=== PATIENT | male | born 1960 | race Caucasian/White ===

== ENCOUNTER 2021-08-30 06:13 | Emergency (ER) | payer OTHER ==
--- OUTSIDE RECORDS SUMMARY | 2021-08-30 06:16 | XMS REPORT | Continuity of Care Document ---
:1960 Author Organization [facility] t Address [address] [place] [address] Care Team Providers Name Role Phone JOHNSON ANTONIO Attending Clinician Unavailable MARISELA Attending Clinician Unavailable MD JERICHO ROBIN Attending Clinician Unavailable LOBITO Attending Clinician Unavailable JOHNSON ANTONIO Admitting Clinician Unavailable MD JERICHO ROBIN Admitting Clinician Unavailable Problems This patient has no known problems. Allergies, Adverse Reactions, Alerts This patient has no known allergies or adverse reactions. Medications This patient has no known medications. Procedures This patient has no known procedures. Encounters Start End Encounter Admission Attending Care Care Encounter Source Date/Time Date/Time Type Type Clinicians Facility Department ID 2021-02-20 2021-02-20 [facility] [id number] [place] 00:00:00 00:00:00 CINDY [address] 2020-09-30 2020-09-30 Outpatient [facility] [id number] [place] 00:00:00 00:00:00 HELADIO [address] Results Test Description Test Time Test Comments Results Result Comments Source SARS-CoV-2 (COVID-19) RNA [Presence] in Respiratory sp ecimen by 2021-02-20 14:38:33 KIMBERLEY with probe detection Test Item Value Reference Range Interpretation Comme nts SARS-CoV-2 (COVID-19) RNA [Presence] in Respiratory Not detected No t-Detected specimen by KIMBERLEY with probe detection (test code = 01724-8) Whether patient is employed in a healthcare setting (test code = 50714-0) Whether the patient has symptoms related to condition of interest (test code = 68008-9) Patient was hospitalized because of this condition (test code = 49969-3) Whether the patient was admitted to intensive care unit (ICU) for condition of interest (test code = 03722-9) Whether patient resides in a congregate care setting (test code = 50213-9) SARS-CoV-2 (COVID-19) RNA [Presence] in Respiratory specimen by KIMBERLEY with probe [id number] 13:54:40 Test Item Value Reference Range Interpretation Comments SARS-CoV-2 (COVID-19) RNA Not detected Not-Detected [Presence] in Respiratory specimen by KIMBERLEY with probe detection (test code = 71052-7)
[2021-08-30] MEDS ORDERED: MORPHINE 4 MG/ML SYR ONE (06:28)
[2021-08-30] MEDS ORDERED: ONDANSETRON 4 MG/2 ML VIAL ONE (06:28)
[2021-08-30] MEDS ORDERED: NA CHLORIDE 0.9% 1,000 ML ONE (06:29)
[2021-08-30 06:30] LABS: Urine Blood 2+ (Negative); Urine Glucose Negative (Negative); Urine Protein Negative (Negative); Urine Specific Gravity >=1.030 (1.005-1.030)
[2021-08-30 06:48] LABS: Absolute Lymphocytes (CBC) 2.9 K/uL (0.7-4.9); Hematocrit 48.8 % (39.6-49.0); Lymphocytes % 33.9 % (15.3-44.8); MPV 8.3 fL (7.6-11.3); RBC Red Blood Cell Count 5.39 M/uL (4.33-5.43)
[2021-08-30 07:02] LABS: Potassium 4.5 mmol/L (3.5-5.1)
--- NOTE | 2021-08-30 07:07 | RAD REPORT ---
EXAM DESCRIPTION: [facility] 6:53 am CLINICAL HISTORY: FLANK PAIN COMPARISON: No comparisons TECHNIQUE: CT of the abdomen and pelvis was performed. All CT scans are performed using dose optimization technique as appropriate and may include automated exposure control or mA/KV adjustment according to patient size. FINDINGS: Lower chest: No acute abnormality. Calcified nodule right middle lobe. Liver: Hepatic steatosis. Biliary: No biliary ductal dilatation. Stomach: No significant focal abnormality. Duodenum: No significant focal abnormality. Pancreas: No significant abnormality. Spleen: No significant abnormality. Adrenal: No suspicious lesions. Kidney/ureter: Mild left-sided hydroureteronephrosis secondary to a 3 mm stone at the left UVJ. Right renal lesion which is most likely a cyst. No renal calculi. Retroperitoneum: No retroperitoneal adenopathy. Vascular: No aneurysm. Bowel: No significant focal abnormality. Diverticulosis without diverticulitis. Normal appendix . Peritoneum: No ascites or free air. Fat containing inguinal hernias. Bladder: Grossly unremarkable. Reproductive: No adnexal masses. Bones: No acute fracture. Other: n/a IMPRESSION: Mild left-sided hydroureteronephrosis secondary to a 3 mm stone at the left UVJ.
[2021-08-30] MEDS ORDERED: KETOROLAC 30 MG/ML INJ ONE (07:10)
[2021-08-30 07:17] LABS: Urine Bacteria <20 /HPF (NONE SEEN)
[2021-08-30] MEDS ORDERED: MAGNESIUM SULFATE 1 gm IVPB 1 GM/100 ML BAG IV ONE (07:45)
[2021-08-30] MEDS ORDERED: TAMSULOSIN 0.4 MG SR CAP ONE (07:45)
--- NOTE | 2021-08-30 08:14 | ER ---
Nurse's Notes [facility] Name: Essie Jolley Jr Age: 60 yrs Sex: Male : 1960 Arrival Date: 08/30/2021 Time: 06:17 Bed 20 Private MD: Diagnosis: Calculus of ureter Presentation: 08/30 06:33 Chief complaint: Patient states: Left flank pain that radiates to abdomen. 8/10 pain. kc4 started around 0500 this AM. Coronavirus screen: Vaccine status: Patient reports receiving the 2nd dose of the covid vaccine. Ebola Screen: Patient negative for fever greater than or equal to 101.5 degrees Fahrenheit, and additional compatible Ebola Virus Disease symptoms Patient denies exposure to infectious person. Patient denies travel to an Ebola-affected area in the 21 days before illness onset. No symptoms or risks identified at this time. Initial Sepsis Screen: Does the patient meet any 2 criteria? No. Patient's initial sepsis screen is negative. Does the patient have a suspected source of infection? No. Patient's initial sepsis screen is negative. Risk Assessment: Do you want to hurt yourself or someone else? Patient reports no desire to harm self or others. Onset of symptoms was August 30, 2021 at 05:00. 06:33 Method Of Arrival: Ambulatory kc4 06:33 Acuity: CL 3 kc4 Triage Assessment: 06:37 General: Appears distressed, uncomfortable, obese, Behavior is calm, cooperative, kc4 appropriate for age. Pain: Complains of pain in abdomen and left flank Pain radiates to abdomen Pain currently is 8 out of 10 on a pain scale. at worst was 10 out of 10 on a pain scale. level that patient reports is acceptable is 2 out of 10 on a pain scale. Quality of pain is described as dull, shooting, Pain began 1 hour ago. Is continuous, Aggravated by exercise, increased activity, Noted to be guarding, moaning, resistant to movement, Also complains of no other associated symptoms. Current management is with Morphine. EENT: No deficits noted. No signs and/or symptoms were reported regarding the EENT system. Neuro: Level of Consciousness is awake, alert, obeys commands, Oriented to person, place, time, situation, Appropriate for age. Cardiovascular: No deficits noted. Respiratory: No deficits noted. GI: Abdomen is round Bowel sounds present X 4 quads. Abd is soft Abdomen is tender to palpation in left flank Reports upper abdominal pain, Patient currently denies nausea, vomiting. : Urine is clear. : Denies burning with urination, cramping discharge, inability to void, incontinence, urinary frequency, urgency. Derm: No deficits noted. No signs and/or symptoms reported regarding the dermatologic system. Musculoskeletal: No deficits noted. No signs and/or symptoms reported regarding the musculoskeletal system. Historical: - Allergies: 06:37 No Known Allergies; kc4 - PMHx: 06:37 None; [facility] - Immunization history:: Adult Immunizations up to date, Client reports receiving the 2nd dose of the Covid vaccine, Last tetanus immunization: up to date. - Social history:: Smoking status: Patient denies any tobacco usage or history of. Screenin:46 Abuse screen: Denies threats or abuse. Denies injuries from another. Nutritional [facility] screening: No deficits noted. On no prescribed diet Difficulty chewing/swallowing? No. Tuberculosis screening: No symptoms or risk factors identified. Never had TB. Possible symptoms: None Risk factors: None. Fall Risk None identified. No fall in past 12 months (0 pts). No secondary diagnosis (0 pts). IV access (20 points). Ambulatory Aid- None/Bed Rest/Nurse Assist (0 pts). Gait- Normal/Bed Rest/Wheelchair (0 pts) Mental Status- Oriented to own ability (0 pts). Total Arthur Fall Scale indicates No Risk (0-24 pts). Assessment: 06:46 General: see triage. [facility] 07:00 Reassessment: RECD REPORT FROM WINSOME BLOOD. 60YO WM P/W BACK PAIN. ALL CURRENT ORDERS bp COMPLETED. 08:11 Reassessment: No changes from previously documented assessment. Patient and/or family bp updated on plan of care and expected duration. Pain level reassessed. Reassessment: DISPO PENDING AFTER MEDS. Neuro: Level of Consciousness is awake, alert, obeys commands, Oriented to Appropriate for age. 08:25 Reassessment: PT D/C HOME AMBULATORY WITH FAMILY, DX WITH RENAL CALCULUS. bp Vital Signs: 06:33 BP 163 / 101 RA Sitting (auto/reg); Pulse 82; Resp 18 S; Temp 98.6(O); Pulse Ox 99% on kc4 R/A; Weight 104.33 kg; Height 5 ft. 11 in. (180.34 cm); Pain 8/10; 07:07 BP 150 / 94; Pulse 75; Resp 12; Pulse Ox 98% ; bp 08:10 BP 131 / 85; Pulse 74; Resp 15; Pulse Ox 96% ; bp 06:33 Body Mass Index 32.08 (104.33 kg, 180.34 cm) kc4 ED Course: 06:17 Patient arrived in ED. bp1 06:25 Miguelina Hancock FNP-C is PHCP. kb 06:25 Clay Tinsley MD is Attending Physician. kb 06:30 Inserted saline lock: 20 gauge in right antecubital area, using aseptic technique. kc4 Blood collected. 06:33 Winsome Recinos is Primary Nurse. kc4 06:37 Triage completed. kc4 06:37 Arm band placed on right wrist. kc4 06:46 Patient has correct armband on for positive identification. Placed in gown. Bed in low kc4 position. Call light in reach. Side rails up X 1. 06:48 Urine Microscopic Only Sent. kc4 06:48 Basic Metabolic Panel Sent. kc4 06:48 CBC with Automated Diff Sent. kc4 06:48 Urine Microscopic Only Sent. kc4 06:49 Basic Metabolic Panel Sent. kc4 06:49 CBC with Diff Sent. kc4 06:53 CT Stone Protocol In Process Unspecified. EDMS 07:02 Primary Nurse role handed off by Winsome Recinos bp 07:02 Kyle Guzman, RN is Primary Nurse. bp 08:25 No provider procedures requiring assistance completed. IV discontinued, intact, bp bleeding controlled, No redness/swelling at site. Pressure dressing applied. Administered Medications: 06:48 Drug: morphine 4 mg Route: IVP; Site: right antecubital; kc4 07:04 Follow up: Response: No adverse reaction; Pain is decreased bp 06:48 Drug: Zofran (Ondansetron) 4 mg Route: IVP; Site: right antecubital; kc4 07:04 Follow up: Response: No adverse reaction bp 06:48 Drug: NS 0.9% 1000 ml Route: IV; Rate: 1000 ml; Site: right antecubital; kc4 08:26 Follow up: IV Status: Completed infusion; IV Intake: 1000ml bp 07:15 Drug: Ketorolac 30 mg Route: IVP; Site: right antecubital; bp 08:06 Follow up: Response: No adverse reaction; Pain is decreased bp 07:30 Drug: Magnesium Sulfate 1 grams Route: IVPB; Infused Over: 30 mins; Site: right bp antecubital; 08:26 Follow up: IV Status: Completed infusion; IV Intake: 100ml bp 07:30 Drug: Flomax (tamsulosin) 0.4 mg Route: PO; bp 08:06 Follow up: Response: No adverse reaction bp Intake: 08:26 IV: 100ml; Total: 100ml. bp 08:26 IV: 1000ml; Total: 1100ml. bp Outcome: 08:14 Discharge ordered by . kb 08:25 Discharged to home ambulatory, with family. bp 08:25 Condition: stable 08:25 Discharge instructions given to patient, family, Instructed on discharge instructions, follow up and referral plans. medication usage, Demonstrated understanding of instructions, follow-up care, medications, Prescriptions given X 2. 08:27 Patient left the ED. bp Signatures: Dispatcher [employer] EDMS Miguelina Hancock, RN BARIATRIC-C RN BARIATRIC-Kyle Santos, RN RN bp Alina Rose Kourtney kc4
--- NOTE | 2021-08-30 08:15 | EDPHYS ---
Physician Documentation [facility] Name: Essie Jolley Jr Age: 60 yrs Sex: Male : 1960 Arrival Date: 08/30/2021 Time: 06:17 Bed 20 Private MD: ED Physician Clay Tinsley HPI: 08/30 06:29 This 60 yrs old Male presents to ER via Unassigned with complaints of Back Pain. kb 06:29 The patient has not experienced similar symptoms in the past. kb 06:30 The patient complains of pain in the left flank. The pain radiates to the left lower kb quadrant. Onset: The symptoms/episode began/occurred just prior to arrival. Modifying factors: The symptoms are alleviated by nothing. the symptoms are aggravated by movement, palpation/percussion. Associated signs and symptoms: The patient has no apparent associated signs or symptoms. Severity of pain: At its worst the pain was moderate in the emergency department the pain is unchanged. The patient has not recently seen a physician. pt reports left flank pain that started this morning after urinating. Denies n/v/d, fever, abd pain, urinary symptoms. Denies history of kidney stones. Historical: - Allergies: 06:37 No Known Allergies; kc4 - PMHx: 06:37 None; kc4 - Immunization history:: Adult Immunizations up to date, Client reports receiving the 2nd dose of the Covid vaccine, Last tetanus immunization: up to date. - Social history:: Smoking status: Patient denies any tobacco usage or history of. ROS: 06:29 Constitutional: Negative for fever, chills, and weight loss. kb 06:29 Back: Positive for flank pain, on the left. 06:29 All other systems are negative. Exam: 06:29 Constitutional: This is a well developed, well nourished patient who is awake, alert, kb and in no acute distress. Head/Face: Normocephalic, atraumatic. Respiratory: Respirations even and unlabored. No increased work of breathing, no retractions or nasal flaring. Abdomen/GI: Soft, non-tender. No distention Skin: Warm, dry with normal turgor. Normal color. MS/ Extremity: Pulses equal, no cyanosis. Neurovascular intact. Full, normal range of motion. Neuro: Awake and alert, GCS 15, oriented to person, place, time, and situation. Moves all extremities. Normal gait. Psych: Awake, alert, with orientation to person, place and time. Behavior, mood, and affect are within normal limits. 06:29 Back: pain, that is moderate, of the left low back, ROM is painful, CVA tenderness, is absent, vertebral tenderness, is not appreciated. Vital Signs: 06:33 BP 163 / 101 RA Sitting (auto/reg); Pulse 82; Resp 18 S; Temp 98.6(O); Pulse Ox 99% on kc4 R/A; Weight 104.33 kg; Height 5 ft. 11 in. (180.34 cm); Pain 8/10; 07:07 BP 150 / 94; Pulse 75; Resp 12; Pulse Ox 98% ; bp 08:10 BP 131 / 85; Pulse 74; Resp 15; Pulse Ox 96% ; bp 06:33 Body Mass Index 32.08 (104.33 kg, 180.34 cm) kc4 MDM: 06:25 Patient medically screened. kb 06:28 Data reviewed: vital signs, nurses notes. Data interpreted: Pulse oximetry: on room air kb is 100 %. Interpretation: normal. 06:59 Differential diagnosis: nephrolithiasis, pyelonephritis, UTI. kb 07:49 Counseling: I had a detailed discussion with the patient and/or guardian regarding: the kb historical points, exam findings, and any diagnostic results supporting the discharge/admit diagnosis, lab results, radiology results, the need for outpatient follow up, a urologist, to return to the emergency department if symptoms worsen or persist or if there are any questions or concerns that arise at home. 08/30 06:28 Order name: Basic Metabolic Panel 08/30 06:28 Order name: CBC with Diff 08/30 06:28 Order name: Urine Microscopic Only 08/30 06:29 Order name: Basic Metabolic Panel; Complete Time: 07:06 EDWV 08/30 06:29 Order name: CBC with Automated Diff; Complete Time: 06:52 EDMS 08/30 06:29 Order name: Urine Microscopic Only; Complete Time: 07:19 EDMS 08/30 06:28 Order name: CT Stone Protocol; Complete Time: 07:08 kb 08/30 06:30 Order name: Urine Dipstick-Ancillary; Complete Time: 06:46 EDMS 08/30 06:28 Order name: IV Saline Lock; Complete Time: 06:49 kb 08/30 06:28 Order name: Labs collected and sent; Complete Time: 06:49 kb 08/30 06:28 Order name: Urine Dipstick-Ancillary (obtain specimen); Complete Time: 06:49 kb Administered Medications: 06:48 Drug: morphine 4 mg Route: IVP; Site: right antecubital; kc4 07:04 Follow up: Response: No adverse reaction; Pain is decreased bp 06:48 Drug: Zofran (Ondansetron) 4 mg Route: IVP; Site: right antecubital; kc4 07:04 Follow up: Response: No adverse reaction bp 06:48 Drug: NS 0.9% 1000 ml Route: IV; Rate: 1000 ml; Site: right antecubital; kc4 08:26 Follow up: IV Status: Completed infusion; IV Intake: 1000ml bp 07:15 Drug: Ketorolac 30 mg Route: IVP; Site: right antecubital; bp 08:06 Follow up: Response: No adverse reaction; Pain is decreased bp 07:30 Drug: Magnesium Sulfate 1 grams Route: IVPB; Infused Over: 30 mins; Site: right bp antecubital; 08:26 Follow up: IV Status: Completed infusion; IV Intake: 100ml bp 07:30 Drug: Flomax (tamsulosin) 0.4 mg Route: PO; bp 08:06 Follow up: Response: No adverse reaction bp Disposition Summary: 08/30/21 08:14 Discharge Ordered Location: Home kb Condition: Stable kb Diagnosis - Calculus of ureter kb Followup: kb - With: Emergency Department - When: As needed - Reason: Worsening of condition Followup: kb - With: Private Physician - When: 2 - 3 days - Reason: Recheck today's complaints, Continuance of care, Re-evaluation by your physician Discharge Instructions: - Discharge Summary Sheet kb - Kidney Stones, [id number] kb - Dietary Guidelines to Help Prevent Kidney Stones kb Forms: - Medication Reconciliation Form kb - Thank You Letter kb - Antibiotic Education kb - Prescription Opioid Use kb Prescriptions: - Flomax 0.4 mg Oral capsule - take 1 capsule by ORAL route once daily 1/2 hour following the same meal each kb day; 10 capsule; Refills: 0, Product Selection Permitted - Zofran 4 mg Oral Tablet - take 1 tablet by ORAL route every 6 hours As needed; 20 tablet; Refills: 0, kb Product Selection Permitted - Diclofenac Sodium 75 mg Oral tablet,delayed release (DR/EC) - take 1 tablet by ORAL route 2 times per day As needed; 30 tablet; Refills: 0, kb Product Selection Permitted Signatures: Dispatcher [employer] Miguelina Rosales, Kyle Peterson, RN RN Winsome Plummer kc4
[2021-08-30 08:33] VITALS: TEMP 98.6
[2021-08-30 08:36] VITALS: BP 131/85; O2SAT 96
== END 2021-08-30 08:27 | disposition home or self-care (01) ==
LOC: ER 06:13
DX: N20.1 Calculus of ureter (principal)
CPT/HCPCS: 96365; 96361; 85025; 80048; 36415; 76377; 74176; 96375; 99284; J3475; J7030; J2405; 81003; 81015